=== PATIENT | female | born 2000 | race African-American/Black ===

== ENCOUNTER 2022-02-07 17:24 | Emergency (ER) | payer SELFPAY ==
[2022-02-07] MEDS ORDERED: Acetaminophen 500 MG TAB ONE (18:49)
[2022-02-07 23:37] LABS: SARS-CoV-2 PCR by NAA Not Detected (NotDetected)
== END 2022-02-07 18:54 | disposition home or self-care (01) ==
LOC: ERS 17:24
DX: B34.9 Viral infection, unspecified (principal); Z20.822 Contact with and (suspected) exposure to COVID-19
CPT/HCPCS: 87804; 99283; U0003; U0005